=== PATIENT | male | born 1975 | race Caucasian/White ===

== ENCOUNTER → 2018-06-11 | Outpatient (CLI) | payer OTHER ==
--- NOTE | 2018-06-21 13:21 | SLEEP ---
[address] [address] SLEEP STUDY REPORT Name: FARSHAD RILEY JR Room: [facility]#: [id number] Admission: 06/11/18 Attend Phys: Krystle Espinoza Discharge: Date of : 71 Report #: [id number] THIS REPORT FOR: //name// CC: Tyler Khoury DO This study has been reviewed in its entirety by a board certified sleep specialist DATE OF SERVICE: 06/11/2018 ATTENDING PHYSICIAN: Dr. Tyler Khoury The patient is a 42-year-old who weighs 232 pounds with a BMI of 34.3. The patient has moderate subjective hypersomnia with an [place] score of 13. The patient underwent home sleep study performed at [facility]. Total recording time was 411 minutes. During the night of study, he patient had no central or mixed apneas. There were 5 obstructive apneas and 53 hypopneas. The patient's apnea-hypopnea index was 8.5 per hour with a supine index of 8.5 per hour as well. Nocturnal oximetry study revealed an average oxygen saturation of 94% with a lowest of 84%. 1.6 minutes were spent in oxygen saturation of less than 88%. Mean heart rate was 70 beats per minute with a maximum of 109 beats per minute. IMPRESSION: 1. Mild sleep apnea-hypopnea syndrome at an AHI of 8.5 per hour. 2. No clinically significant nocturnal hypoxia. RECOMMENDATIONS: 1. The patient has mild sleep apnea, but is clinically symptomatic with an [place] score of 13. I would recommend treating the patient's sleep apnea with either an oral appliance or a trial of CPAP titration. 2. The patient should be followed up after the above treatment to improve clinical symptoms and also to assess for compliance with treatment. 3. Weight loss is strongly advised. 4. Avoid [employer] depressants. 5. Cautioned regarding driving until symptoms of sleep apnea resolve with the above recommendations. <ELECTRONICALLY SIGNED> By: Ryder Delarosa MD 06/21/18 1321 [id number] Precious Delarosa MD /nt
== END ==
LOC: M.SLEEPLAB 16:00
DX: G47.33 Obstructive sleep apnea (adult) (pediatric) (principal)

== ENCOUNTER → 2021-04-16 | Outpatient (CLI) | payer OTHER | LOC: M.ULTRA 07:27 | PROVIDERS: ATTEND Family Medicine | DX: K76.1 Chronic passive congestion of liver (principal); R74.8 Abnormal levels of other serum enzymes ==